=== PATIENT | female | born 1940 | race Two or more races ===

== ENCOUNTER 2024-08-31 09:36 | Emergency (ER) | payer OTHER ==
[~2024-08-31] VITALS: Ht 152.4 cm; Wt 84.7 kg
[2024-08-31 10:00] VITALS: BP 155/82; PULSE 70; RESP 16; O2SAT 98
[2024-08-31 10:20] VITALS: TEMP 98.4
[2024-08-31] MEDS: ACETAMINOPHEN 500 MG TAB PO ONE (10:20)
[2024-08-31] MEDS ORDERED: DICL1GEL59 EX (11:03)
[2024-08-31] MEDS ORDERED: ACET-1080 PO (11:03)
== END 2024-08-31 11:07 | disposition home or self-care (01) ==
LOC: ER 09:36
DX: M17.11 Unilateral primary osteoarthritis, right knee (principal); I10 Essential (primary) hypertension; Z79.1 Long term (current) use of non-steroidal anti-inflammatories (NSAID)
CPT/HCPCS: 73562